=== PATIENT | female | born 1970 | race Caucasian/White ===

== ENCOUNTER 2018-08-31 17:13 | Emergency (ER) | payer MEDICAID, OTHER ==
[~2018-08-31] VITALS: Ht 160 cm; Wt 73.5 kg
[2018-08-31 17:23] VITALS: BP 168/98
[2018-08-31 18:26] LABS: Urine WBC None Seen /hpf (0 - 5)
[2018-08-31 18:42] LABS: Urine Bacteria NONE SEEN /hpf (None Seen); Urine Blood Negative /uL (Negative); Urine Mucus FEW (None Seen); Urine Specific Gravity 1.012 (1.001-1.035)
[2018-08-31] MEDS ORDERED: PHENAZOPYRIDINE HCL 100 MG TAB PO ONE (19:00)
[2018-08-31] MEDS ORDERED: HYDROcodone-ACET 10/325MG TAB PO ONE (19:00)
[2018-08-31] MEDS ORDERED: cefTRIAXone SOD 1,000 MG VL IM ONE (19:00)
== END 2018-08-31 20:02 | disposition home or self-care (01) ==
LOC: ER 17:16
DX: N39.0 Urinary tract infection, site not specified (principal)
CPT/HCPCS: 74176; 81001; 81025; 96372; 99284; J0696

== ENCOUNTER 2024-04-21 16:02 | Emergency (ER) | payer MEDICAID ==
[~2024-04-21] VITALS: Ht 160 cm; Wt 71.6 kg
[2024-04-21 17:15] VITALS: BP 153/78; PULSE 94; RESP 16; TEMP 97.1; O2SAT 98
[2024-04-21] MEDS ORDERED: CEPHALEXIN 250 MG CAP PO ONE (17:15)
[2024-04-21] MEDS: KETOROLAC TROMETH 60MG/2ML VIAL IM ONE (17:39)
[2024-04-21] MEDS: SULFAMETHOX W/TRIMETH(800/160MG) DS TAB PO ONE (17:42)
[2024-04-21] MEDS ORDERED: IBUP-1455 PO (19:30)
[2024-04-21] MEDS ORDERED: BACDST PO (19:30)
== END 2024-04-21 20:29 | disposition home or self-care (01) ==
LOC: ER 16:02
DX: L08.9 Local infection of the skin and subcutaneous tissue, unspecified (principal); I10 Essential (primary) hypertension; S61.411D Laceration without foreign body of right hand, subsequent encounter; W26.0XXD Contact with knife, subsequent encounter
CPT/HCPCS: 73130; 96372; 99283; J1885